=== PATIENT | female | born 1960 | race Caucasian/White ===

== ENCOUNTER 2018-04-27 09:56 | Day surgery (SDC) | payer OTHER ==
[2018-04-26 09:43] VITALS: BMI 34.7
[2018-04-27] MEDS ORDERED: MIDAZOLAM HCL 2 MG/2 ML SINGLE DOSE VIAL ONE (10:12)
[2018-04-27] MEDS ORDERED: oxyCODONE HCL 5 MG TABLET PO PRN ×2 (11:26)
[2018-04-27] MEDS ORDERED: ONDANSETRON 4 MG/2 ML VIAL IVPUSH PRN (11:26)
[2018-04-27] MEDS ORDERED: LACTATED RINGERS SOLUTION 1,000 ML IV SCH (11:30)
--- NOTE | 2018-04-27 12:09 | OP ---
DATE OF OPERATION: 04/27/2018 PREOPERATIVE DIAGNOSIS: Postmenopausal bleeding. POSTOPERATIVE DIAGNOSIS: Postmenopausal bleeding. PROCEDURE: Diagnostic hysteroscopy and dilation and curettage. SURGEON: Matthew Mclean DO ANESTHESIA: General. IV FLUIDS: 600 mL. DISTENTION MEDIA: 100 mL, 90 mL out, distention deficit 10 mL. ESTIMATED BLOOD LOSS: 25 mL. URINE OUTPUT: 50 mL. SPECIMEN: Endometrial lining and ECC. COMPLICATIONS: None. DESCRIPTION OF PROCEDURE: The patient was taken to the operating room where general anesthesia was administered without difficulty. She was placed upon the table in the dorsal lithotomy position utilizing the stirrups. An examination under anesthesia revealed the findings above. The patient was then prepped and draped in the usual sterile fashion. A weighted speculum was inserted into the posterior aspect of the vagina. Single-tooth tenaculum was used to grasp the anterior lip of the cervix. The uterus was carefully sounded initially utilizing dilators followed by Hegar dilators to accommodate the hysteroscope. The hysteroscope was introduced under direct visualization. The uterus was distended with normal saline. The aforementioned findings were noted. Atrophic uterine cavity. No masses. No polyps. The hysteroscope was then withdrawn, and the cervix was further dilated to accommodate the sharp curette. The uterus was curettage in a clockwise fashion until a gritty-like sensation was noted in all aspects of the uterus. The endometrial scrapings and ECC were sent to Pathology. The tenaculum was removed from the cervix, and good hemostasis was noted at the puncture site. The patient tolerated the procedure well. All instrument counts, sponge and lap counts were correct x2 with excellent hemostasis. The patient was awakened from general anesthesia and taken to the recovery room in stable condition. The patient will go home after recovering from anesthesia meeting all criteria for discharge. She was given instructions regarding follow up in [address] Mclean's office. Matthew Mclean DO [id number]
[2018-04-27 13:08] VITALS: TEMP 97.8
[2018-04-27 15:18] VITALS: BP 130/82; PULSE 61
--- NOTE | 2018-04-30 16:30 | PATH ---
Surgical Pathology Report Patient Name: ARLEY YADAV [facility]. Rec. #: [id number] /Age/Gender: 1960 (Age: 57) / F Account: [id number] Location: [facility] Taken: 04/27/2018 Received: 04/27/2018 Reported: 04/30/2018 Physicians: Matthew Mclean DO Specimen(s) Received A: ENDOMETRIAL CURETTINGS B: ENDOCERVICAL CURETTINGS Clinical History Postmenopausal bleeding Final Diagnosis A. ENDOMETRIAL CURETTING: ONE FRAGMENT OF ENDOMETRIAL POLYP. SEPARATE FRAGMENTS OF WEAKLY PROLIFERATIVE/IN ACTIVE ENDOMETRIUM. UNREMARKABLE ENDOCERVICAL GLANDS AND SQUAMOUS EPITHELIUM ALSO PRESENT. B. ENDOCERVICAL CURETTINGS: UNREMARKABLE ENDOCERVICAL TISSUE AND METAPLASTIC SQUAMOUS EPITHELIUM. Electronically Signed Carlos Freeman M.D. Gross Description A. Received in formalin labeled "endometrial curetting," is a 0.6 x 0.6 x 0.2 cm aggregate of reynolds red soft tissue fragments. The formalin is filtered and the specimen is entirely submitted in one cassette. B. Received in formalin labeled "endocervical curetting," is a 0.4 x 0.3 x 0.1 cm aggregate of reynolds-red soft tissue fragments. The formalin is filtered and the specimen is entirely submitted in one cassette. 04/27/2018 [facility]04/27/2018
== END 2018-04-27 14:15 | disposition home or self-care (01) ==
LOC: JASU-SURG 09:56
PROVIDERS: ATTEND Obstetrics & Gynecology
PROC: 0UDB7ZX Extraction of Endometrium, Via Natural or Artificial Opening, Diagnostic (ICD-10-PCS; principal; 2018-04-27 11:00)
PROC: 0UJD8ZZ Inspection of Uterus and Cervix, Via Natural or Artificial Opening Endoscopic (ICD-10-PCS; 2018-04-27 11:00)
DX: N95.0 Postmenopausal bleeding (principal)
CPT/HCPCS: 88305-TC; 94760